=== PATIENT | female | born 1940 | race Caucasian/White ===

== ENCOUNTER → 2024-01-20 15:03 | Outpatient (REF) | payer MEDICARE, SELFPAY | LOC: RAD 15:03 | PROVIDERS: ATTENDING PHYSICIAN Internal Medicine Interventional Cardiology; FAMILY PHYSICIAN Family Medicine | DX: I73.9 Peripheral vascular disease, unspecified (principal); R60.9 Edema, unspecified | CPT/HCPCS: 93922; 93925; 93971 ==

== ENCOUNTER → 2024-03-22 12:30 | Outpatient (REF) | payer MEDICARE, SELFPAY | LOC: WOUND 12:30 | PROVIDERS: ATTENDING PHYSICIAN Surgery; FAMILY PHYSICIAN Family Medicine | DX: L97.812 Non-pressure chronic ulcer of other part of right lower leg with fat layer exposed (principal); L97.212 Non-pressure chronic ulcer of right calf with fat layer exposed; C44.722 Squamous cell carcinoma of skin of right lower limb, including hip; F03.90 Unspecified dementia, unspecified severity, without behavioral disturbance, psychotic disturbance, mood disturbance, and anxiety; I48.91 Unspecified atrial fibrillation; R73.03 Prediabetes; I48.0 Paroxysmal atrial fibrillation | CPT/HCPCS: 99204 ==

== ENCOUNTER 2024-04-12 08:11 | Day surgery (SDC) | payer MEDICARE, SELFPAY ==
--- NOTE | 2024-04-02 16:04 | PTCARENOTE ---
Patients 02/05 ECG abnormal- reviewed by Dr. Guadarrama- no additional interventions required
[2024-04-12] VITALS (21 sets, daily range): BP systolic 110–154; BP diastolic 58–98; BMI 20.9
[2024-04-12] MEDS: NSS 500 IV (08:55)
[2024-04-12 09:01] LABS: PT 13.7 Sec (11.4-14.6)
[2024-04-12 09:02] LABS: APTT 32.4 Sec (23.4-35.0)
[2024-04-12 09:04] LABS: Hematocrit 46.9 % (37.0-47.0); Hemoglobin 14.8 g/dL (12.0-16.0); Mean Corp Hgb Conc. 31.6 g/dL (33.0-37.0); Mean Corpuscular Hgb 30.3 pg (27.0-31.0); Mean Corpuscular Volume 95.9 fL (81.0-99.0); Mean Platelet Volume 8.9 fL (7.4-10.4); Platelet Count 281 10^3/uL (130-400); Red Blood Cell Count 4.89 10^6/uL (4.20-5.40); Red Cell Dist. Width 13.2 % (11.5-14.5); White Blood Cell Count 8.8 10^3/uL (4.8-10.8)
[2024-04-12 09:05] LABS: Blood Urea Nitrogen 45 mg/dl (7-17); Calcium 10.7 mg/dl (8.4-10.2); Carbon Dioxide 27 mmol/L (22-30); Chloride 106 mmol/L (98-107); Estimated Creatinine Clearance 22 ml/min; Glucose 89 mg/dl (70-99); Sodium 141 mmol/L (135-145); eGFR 41.31
[2024-04-12 09:38] LABS: Potassium 5.1 mmol/L (3.5-5.1)
--- NOTE | 2024-04-12 10:20 | W.SUR.PREOP ---
Pre-Operative Surgical Note
-
I have examined this patient prior to the performance of the scheduled procedure.
The patient's condition is unchanged from the time of the current History and
Physical and the patient is able to undergo the scheduled procedure.
--- NOTE | 2024-04-12 12:23 | OR.RPT ---
Operative Report
Operative Report
PROCEDURE DATE: 04/12/2024
Preoperative diagnosis: Right lower extremity chronic nonhealing wound, concern for peripheral arterial disease.
Postoperative diagnosis: Same
Procedure:
1. Duplex assisted left common femoral artery cannulation.
2. Aortogram and pelvic angiogram.
3. Right lower extremity diagnostic arteriogram with third order vessel catheterization of right superficial femoral artery via left common femoral artery puncture.
4. Left femoral angiogram.
5. Supervision and interpretation.
Surgeon: Stevie
Shafting Worker: None
Complications: None
Anesthesia: Local, sedation
Fluoroscopy:
3.0 min
10 mGy
3.27 Gy.cm2
Indications for procedure:
Chronic nonhealing right ankle wound. 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 Therefore prior to definitive management of
oncologic process for wound, recommended angiography to ensure that there was no vascular component, and that there would be sufficient blood flow for healing with any intervention. Risk/benefit/alternatives fully discussed with the patient's
family. They understood all wished to proceed.
Description of procedure:
Patient was identified, brought to the operating room. Placed on the table in the supine position. After the adequate administration of anesthesia, the patient was prepped and draped in the standard surgical fashion. A standard preoperative
timeout was undertaken and everybody was in agreement with the plan.
The left common femoral artery was accessed with a micropuncture kit under direct duplex ultrasound guidance. A 5 [place] sheath was then advanced over a 0.035 inch wire, and a martinez's hook catheter was advanced into the abdominal aorta.
Aortogram and pelvic angiogram was obtained. Findings as follows:
Infrarenal aorta: Patent with no significant stenosis
Right common iliac artery: Patent with no significant stenosis
Right external iliac artery: Tortuous but patent with no significant stenosis
Left common iliac artery: Patent with no significant stenosis
Left external iliac artery: Tortuous but patent with no significant stenosis
Using a floppy angled hydrophilic wire, the right common femoral artery was cannulated and the catheter was advanced. Right lower extremity arteriogram was obtained. Findings as follows:
Common femoral artery: Patent with no significant stenosis
Profunda femoris artery: Patent with no significant stenosis
Superficial femoral artery: Patent with no significant stenosis
Popliteal artery: Patent with no significant stenosis
Anterior tibial artery: High origin/takeoff of the artery was noted in the above/behind knee popliteal artery, but the artery was patent with no significant stenosis. Diffuse luminal irregularities but no stenosis with good flow across the ankle
onto the dorsalis pedis. The arterial arches of the foot did not appear to be complete. Of note, in the vicinity of the ankle there were branches emanating from the peroneal and the anterior tibial artery that gave a blush around the region of the
wound suggesting hyperemia/adequate perfusion.
Tibial peroneal trunk: Patent with no significant stenosis.
Peroneal artery: Patent with no significant stenosis, somewhat tortuous/with luminal irregularities but no stenosis.
Posterior tibial artery: Patent with no significant stenosis. Somewhat tortuous and slightly smaller in stature compared to the other tibial vessels but there was no definitive stenosis, but there was moderate tortuosity. Crossed the ankle but
relatively weak filling of the plantar's in general. However, delayed imaging did demonstrate moderate collateralization through the foot from both the dorsalis pedis and the posterior tibial collateral branches.
At this point, I felt that there was no need for any revascularization as there is no flow-limiting stenosis.
Wires and catheters were withdrawn. A left femoral angiogram had been performed upon sheath access and that demonstrated good puncture in the left common femoral artery. Therefore patient was taken to the recovery room where the sheath was
withdrawn and manual pressure was applied. Hemostasis was fully achieved.
The patient tolerated procedure well.
[2024-04-12] MEDS: NSS IV (13:06)
[2024-04-12 13:11] LABS: ALT (SGPT) 25 U/L (0-35); AST (SGOT) 39 U/L (14-36); Albumin 4.4 g/dl (3.5-5.0); Alkaline Phosphatase 180 U/L (38-126); Direct Bilirubin 0.2 mg/dl (0.0-0.4); Total Bilirubin 0.7 mg/dl (0.2-1.3); Total Protein 8.2 g/dl (6.3-8.2)
[2024-04-12] MEDS: NSS 1000 IV (13:11)
== END 2024-04-12 16:40 | disposition home or self-care (01) ==
LOC: CATH 08:11
PROVIDERS: ATTENDING PHYSICIAN Surgery Vascular Surgery; FAMILY PHYSICIAN Family Medicine; OTHER PHYSICIAN Student in an Organized Health Care Education/Training Program
DX: I70.233 Atherosclerosis of native arteries of right leg with ulceration of ankle (principal); L97.319 Non-pressure chronic ulcer of right ankle with unspecified severity; C44.702 Unspecified malignant neoplasm of skin of right lower limb, including hip; Z79.890 Hormone replacement therapy; Z79.899 Other long term (current) drug therapy; K21.9 Gastro-esophageal reflux disease without esophagitis; F03.90 Unspecified dementia, unspecified severity, without behavioral disturbance, psychotic disturbance, mood disturbance, and anxiety; I48.0 Paroxysmal atrial fibrillation; R73.03 Prediabetes
CPT/HCPCS: 36247; 75716; 75625; 80053; 82248; 85027; 85610; 85730; 86850; 86900; 86901; C1769; C1894; Q9967

== ENCOUNTER → 2024-06-21 14:09 | Outpatient (REF) | payer MEDICARE, SELFPAY | LOC: WOUND 14:09 | PROVIDERS: ATTENDING PHYSICIAN Surgery; FAMILY PHYSICIAN Family Medicine | DX: L97.812 Non-pressure chronic ulcer of other part of right lower leg with fat layer exposed (principal); L97.212 Non-pressure chronic ulcer of right calf with fat layer exposed; C44.722 Squamous cell carcinoma of skin of right lower limb, including hip; F03.90 Unspecified dementia, unspecified severity, without behavioral disturbance, psychotic disturbance, mood disturbance, and anxiety; I48.91 Unspecified atrial fibrillation; R73.03 Prediabetes; I48.0 Paroxysmal atrial fibrillation | CPT/HCPCS: 99213 ==

== ENCOUNTER → 2024-09-28 13:48 | Outpatient (REF) | payer MEDICARE, SELFPAY | LOC: DHVS 13:48 | PROVIDERS: ATTENDING PHYSICIAN Surgery Vascular Surgery; FAMILY PHYSICIAN Family Medicine | DX: I73.9 Peripheral vascular disease, unspecified (principal) | CPT/HCPCS: 93922; 93925 ==